=== PATIENT | female | born 1955 | race Hispanic/Latino ===

== ENCOUNTER 2021-08-23 14:06 | Emergency (ER) | payer OTHER ==
[~2021-08-23] VITALS: Ht 152.4 cm; Wt 78.0 kg
== END 2021-08-23 15:00 | disposition home or self-care (01) ==
LOC: ER 14:15
DX: A04.8 Other specified bacterial intestinal infections (principal); J30.2 Other seasonal allergic rhinitis; I10 Essential (primary) hypertension
CPT/HCPCS: 99282